=== PATIENT | male | born 1995 | race Two or more races ===

== ENCOUNTER 2022-11-07 21:19 | Emergency (ER) | payer MEDICAID, OTHER ==
[~2022-11-07] VITALS: Ht 165.1 cm; Wt 81.7 kg
[2022-11-07 22:05] VITALS: BP 150/95
[2022-11-08] MEDS ORDERED: IBUP800T26 PO (01:18)
[2022-11-08] MEDS ORDERED: IBUPROFEN 800 MG TAB PO ONE (01:30)
== END 2022-11-08 01:15 | disposition left against medical advice (07) ==
LOC: ER 21:22
DX: S62.617A Displaced fracture of proximal phalanx of left little finger, initial encounter for closed fracture (principal); W21.01XA Struck by football, initial encounter; Y93.61 Activity, american tackle football; Y92.89 Other specified places as the place of occurrence of the external cause; Y99.8 Other external cause status
CPT/HCPCS: 73140